=== PATIENT | male | born 1990 | race Two or more races ===

== ENCOUNTER 2017-10-09 17:32 | Emergency (ER) | payer MEDICAID ==
[~2017-10-09] VITALS: Ht 172.7 cm; Wt 79.4 kg
[2017-10-09] MEDS ORDERED: Ketorolac 30mg Inj IM ONE (18:15)
[2017-10-09] MEDS ORDERED: Norco 5mg/325mg tab PO ONE (18:15)
[2017-10-09] MEDS ORDERED: NORCO 5-325 TA1 EACH ORAL (19:09)
[2017-10-09 19:30] VITALS: BP 128/84
--- NOTE | 2017-10-10 13:58 | Diagnostic Imaging Report ---
Indication: Pain Technique: XRAY Foot Complete L Comparison: None Findings: There is no evidence of acute fracture or dislocation. Anatomic alignment and joint spaces are preserved. No focal soft tissue abnormality is appreciated. No radiopaque foreign body seen. Impression: No evidence of acute fracture or dislocation.
--- NOTE | 2017-10-10 13:59 | Diagnostic Imaging Report ---
Indication: Pain Technique: XRAY Ankle Compl Min 3v L Comparison: None Findings: There is soft tissue swelling about the lateral malleolus. There is no evidence of acute fracture. Ankle mortise is intact on these nonstress views. Imaged hindfoot grossly unremarkable. No radiopaque foreign body seen. Impression: Swelling about the lateral malleolus without associated acute fracture. Ankle mortise intact.
--- NOTE | 2017-10-11 06:32 | Emergency Room Report ---
History of Present Illness General Chief Complaint: Lower Extremity Injury Source: Patient Present Illness HPI 26-year-old male presents ED complaining of left ankle pain and swelling. States that he was riding a horse today and he jumped off the horse and landed on his left ankle. Presents with swelling, pain. Pain is throbbing, 10 out of 10, nonradiating. Unable to bear weight. Denies any other injuries. No other aggravating relieving factors. Denies any other associated symptoms Allergies: Coded Allergies: No Known Allergies (Unverified , 10/09/17) Patient History Past Medical History: none Past Surgical History: none Pertinent Family History: none Social History: Denies: smoking, alcohol use, drug use Immunizations: UTD Reviewed Nursing Documentation: PMH: Agreed; PSxH: Agreed Nursing Documentation-PMH Past Medical History: No History, Except For Review of Systems All Other Systems: negative except mentioned in HPI Physical Exam Vital Signs Date Time Temp Pulse Resp B/P (MAP) Pulse Ox O2 Delivery O2 Flow Rate FiO2 10/09/17 18:02 97.8 93 19 128/84 96 Room Air 97.9 Sp02 EP Interpretation: reviewed, normal General Appearance: no apparent distress, alert, GCS 15, non-toxic Head: normocephalic Eyes: bilateral eye normal inspection, bilateral eye PERRL ENT: normal ENT inspection Neck: normal inspection Respiratory: normal inspection Cardiovascular #1: normal inspection Gastrointestinal: normal inspection Rectal: deferred Genitourinary: no CVA tenderness Musculoskeletal: decreased range of motion, swelling - L ankle Neurologic: alert, oriented x3, responsive, motor strength/tone normal, sensory intact, speech normal Psychiatric: judgement/insight normal, memory normal, mood/affect normal, no suicidal/homicidal ideation Skin: normal color, no rash, warm/dry, well hydrated Lymphatic: no adenopathy Procedures Splinting Splinting : Consent: Verbal Splint: poserior short Pre-Proc Neuro Vasc Exam: normal Post-Proc Neuro Vasc Exam: normal Patient Tolerated: Well Complications: None Medical Decision Making Diagnostic Impression: Primary Impression: Ankle injury Qualified Codes: S99.912A - Unspecified injury of left ankle, initial encounter ER Course Hospital Course 26-year-old M presents to ED complaining of L ankle swelling/pain Differential diagnoses include: Fracture, dislocation, sprain, contusion Clinical course Patient placed on stretcher. After initial history and physical, I ordered pain medications and Xrays of L foot/ankle Xrays prelim read shows no acute fracture/dislocation. However given significant swelling will place in posterior splint, given crutches Diagnosis - ankle sprain Stable and discharged to home with prescription for [place]. apply ice, keep elevated. weight bear as tolerated. Followup with PMD. Return to ED if symptoms recur or worsen Other X-Ray Diagnostic Results Other X-Ray Diagnostic Results #1: X-Ray ordered: L ankle # of Views/Limited Vs Complete: 3 View Indication: Swelling EP Interpretation: Yes Interpretation: no dislocation, no fractures Impression: No acute disease Electronically Signed by: Electronically signed by Ricardo Ascencio MD Other X-Ray Diagnostic Results #2: X-Ray ordered: L foot # of Views/Limited Vs Complete: 3 View Indication: Pain EP Interpretation: Yes Interpretation: no dislocation, no soft tissue swelling, no fractures Impression: No acute disease Electronically Signed by: Electronically signed by Ricardo Ascencio MD Last Vital Signs Date Time Temp Pulse Resp B/P (MAP) Pulse Ox O2 Delivery O2 Flow Rate FiO2 10/09/17 19:30 97.8 19 128/84 96 Room Air 97.8 10/09/17 18:02 93 Status: improved Disposition: HOME, SELF-CARE Condition: Stable Scripts Hydrocodone Bit/Acetaminophen 5-325* (NORCO 5-325*) 1 Each Tablet 1 TAB ORAL Q6H PRN for For Pain, #10 TAB 0 Refills Prov: Ricardo Ascencio MD 10/09/17 Referrals: NOT CHOSEN IPA/,REFERRING (PCP) Departure Forms: Return to Work Return to Work Date: October 12, 2017 Work Restrictions: No Prolonged Standing Patient Instructions: Ankle Sprain Ricardo Ascencio MD October 11, 2017 06:32
== END 2017-10-09 19:30 | disposition home or self-care (01) ==
LOC: EMR 18:12
DX: S93.402A Sprain of unspecified ligament of left ankle, initial encounter (principal); Y93.52 Activity, horseback riding; Y92.9 Unspecified place or not applicable
CPT/HCPCS: 29515; 73610; 73630; 96372; 99283; J1885